=== PATIENT | male | born 1980 | race Caucasian/White ===

== ENCOUNTER 2023-11-28 15:52 | Emergency (ER) | payer SELFPAY ==
[~2023-11-28] VITALS: Ht 172.7 cm; Wt 77.0 kg
[2023-11-28 15:57] VITALS: O2SAT 98
[2023-11-28] MEDS: HYDROCODONE/ACETAMINOPHEN 5/325MG TABLET PO ONE (16:49)
[2023-11-28] MEDS: BACITRACIN ZINC OINT UDPKT TOP ONE (16:49)
[2023-11-28] MEDS: LIDOCAINE HCL/PF 1% 10 MG/ML 5ML VIAL INFIL ONE (16:50)
[2023-11-28] MEDS: TETANUS, DIPHTHERIA, PERTUSSIS VAC/PF 0.5ML (>10YR OLD) IM ONE (16:51)
[2023-11-28] MEDS ORDERED: CEPH500C2 MT (17:59)
[2023-11-28] MEDS ORDERED: BO1 TP (17:59)
[2023-11-28] MEDS ORDERED: IBUP-2029 MT (17:59)
[2023-11-28] MEDS: CEPHALEXIN 250MG CAPSULE PO ONE (18:03)
[2023-11-28 18:25] VITALS: BP 128/66; PULSE 88; RESP 18; TEMP 98.2
== END 2023-11-28 18:25 | disposition home or self-care (01) ==
LOC: ER 15:52
DX: S61.411A Laceration without foreign body of right hand, initial encounter (principal); X58.XXXA Exposure to other specified factors, initial encounter; Y93.89 Activity, other specified; Y92.89 Other specified places as the place of occurrence of the external cause; Y99.8 Other external cause status
CPT/HCPCS: 73130; 90715; 12002; 90471; 99283; J3490; Z7610 ×3

== ENCOUNTER 2023-12-09 19:19 | Emergency (ER) | payer SELFPAY ==
[~2023-12-09] VITALS: Ht 172.7 cm; Wt 72.7 kg
[~2023-12-09 19:19] MED LIST: BO1 TP; CEPH500C2 MT; IBUP-2029 MT
[2023-12-09 19:26] VITALS: O2SAT 99
[2023-12-09 20:43] VITALS: BP 132/78; PULSE 67; RESP 16; TEMP 98
== END 2023-12-09 20:45 | disposition home or self-care (01) ==
LOC: ER 19:19
DX: S61.411D Laceration without foreign body of right hand, subsequent encounter (principal); X58.XXXD Exposure to other specified factors, subsequent encounter
CPT/HCPCS: 99281; Z7610